=== PATIENT | female | born 1945 | race Caucasian/White ===

== ENCOUNTER 2017-03-12 16:33 | Emergency (ER) | payer MEDICARE ==
[~2017-03-12] VITALS: Ht 182.9 cm; Wt 101.0 kg
[~2017-03-12 16:33] MED LIST: LOSARTAN POT25 MG PO; METOPROL TAR100 MG PO
[2017-03-12] MEDS ORDERED: LOSARTAN/HCT1 TA2 PO (16:55)
[2017-03-12] MEDS ORDERED: TOPROL XL25 MG PO (16:56)
[2017-03-12] MEDS ORDERED: AMLODIPINE5 MG PO (16:56)
[2017-03-12] MEDS ORDERED: CALCIUM/MAGNESI1 TAB PO (16:57)
[2017-03-12] MEDS ORDERED: ASPIRIN 8181 MG PO (16:57)
[2017-03-12 17:58] LABS: HEMATOCRIT 48.8 % (37.0-47.0); HEMOGLOBIN 16.6 g/dl (12.0-16.0); IMMATURE GRANULOCYTES 0.7 % (0.0-1.0); MEAN CELL VOLUME 90.4 fL CALC (80.0-100.0); MEAN CORPUSCULAR HGB 30.7 pG CALC (26.0-32.0); NEUT# 8.34 thou/uL (2.00-7.15); RED BLOOD COUNT 5.4 mill/uL (4.20-5.60); RED CELL DISTRI WIDTH 12.9 % (11.5-15.5)
[2017-03-12 18:25] LABS: ALBUMIN 4.9 g/dL (3.2-5.0); ALKALINE PHOSPHATASE 73 u/l (38-126); ANION GAP 17 (6-22 (CALC)); BILIRUBIN, TOTAL 0.5 mg/dL (0.0-1.4); BUN 15 mg/dL (8-23); BUN/CREATININE RATIO 22 (12-20 (CALC)); CALCIUM 10.8 mg/dL (8.4-10.2); CARBON DIOXIDE 25 mmol/l (22-30); CHLORIDE 102 mmol/l (95-108); CREATININE 0.7 mg/dL (0.5-1.0); GFR > 60 ML/MIN (>=60 (CALC)); GFR FOR AFR.AMER. > 60 ML/MIN (>=60 (CALC)); GLUCOSE 133 mg/dL (82-115); POTASSIUM 4.4 mmol/l (3.5-5.1); SGOT/AST 26 u/l (9-36); SGPT/ALT 40 u/l (11-66); SODIUM 139 mmol/l (137-146); TOTAL PROTEIN 7.8 g/dL (6.3-8.2)
[2017-03-12 19:17] VITALS: BP 176/94
== END 2017-03-12 19:17 | disposition home or self-care (01) ==
LOC: ED 16:33
PROVIDERS: Emergency Medicine
DX: T18.128A Food in esophagus causing other injury, initial encounter (principal); R13.10 Dysphagia, unspecified; X58.XXXA Exposure to other specified factors, initial encounter; Y93.89 Activity, other specified; Y92.009 Unspecified place in unspecified non-institutional (private) residence as the place of occurrence of the external cause
CPT/HCPCS: J1610